=== PATIENT | male | born 1960 | race Caucasian/White ===

== ENCOUNTER 2020-02-16 11:08 | Emergency (ER) | payer BC ==
[~2020-02-16] VITALS: Ht 172.7 cm; Wt 68.2 kg
[2020-02-16 11:16] VITALS: TEMP 98.4
[2020-02-16] MEDS ORDERED: CEPHALEXIN500 M1 PO (13:01)
[2020-02-16 13:53] VITALS: BP 132/74; PULSE 78
== END 2020-02-16 13:52 | disposition home or self-care (01) ==
LOC: COL.ER 11:08
DX: S61.211A Laceration without foreign body of left index finger without damage to nail, initial encounter (principal); S61.213A Laceration without foreign body of left middle finger without damage to nail, initial encounter; W29.8XXA Contact with other powered hand tools and household machinery, initial encounter

== ENCOUNTER → 2020-02-26 | Outpatient (CLI) | payer BC ==
[~2020-02-26] MED LIST: CEPHALEXIN500 M1 PO
[2020-02-26 13:08] VITALS: BP 120/776; PULSE 57; TEMP 97.4
== END ==
LOC: COL.ER 13:01
DX: Z48.02 Encounter for removal of sutures (principal)

== ENCOUNTER 2021-11-15 10:03 | Emergency (ER) | payer BC ==
[~2021-11-15] VITALS: Ht 172.7 cm; Wt 68.2 kg
[2021-11-15 12:42] VITALS: BP 117/79; PULSE 70; TEMP 97.6
== END 2021-11-15 12:42 | disposition home or self-care (01) ==
LOC: COL.ER 10:03
DX: J32.9 Chronic sinusitis, unspecified (principal)

== ENCOUNTER 2022-04-15 07:30 | Day surgery (SDC) | payer BC ==
[~2022-04-15] VITALS: Ht 172.7 cm; Wt 65.2 kg
[2022-04-15] MEDS ORDERED: ADDERALL20 MG PO (08:05)
[2022-04-15 09:11] VITALS: BP 133/96; PULSE 66; TEMP 97.5
[2022-04-15 14:30] VITALS: BP 122/92; PULSE 64; TEMP 97.5
[2022-04-15 14:45] VITALS: BP 124/88; PULSE 56
[2022-04-15 15:00] VITALS: BP 135/83; PULSE 58
--- NOTE | 2022-04-15 15:05 | NUR ---
1430 RETURNS TO ROOM 6 PER CART. AWAKE, ALERT. AMBULATES TO RECLINER WITH STANDBY ASSIST. RESP UNLABORED. DENIES NAUSEA OR ABD PAIN. VITAL SIGNS OBTAINED. CALL LIGHT AT SIDE. 1440 TOLERATES PO JUICE AND MUFFIN WITHOUT NAUSEA. 1445 DISCHARGE INSTRUCTIONS REVIEWED. PATIENT VERBALIZES UNDERSTANDING. COPY PROVIDED IN DISCHARGE FOLDER 1456 DR. NGO HERE TO VISIT WITH PATIENT 1500 DRESSES SELF
== END 2022-04-15 15:50 | disposition home or self-care (01) ==
LOC: SDCO 07:30
DX: Z12.11 Encounter for screening for malignant neoplasm of colon (principal); K63.5 Polyp of colon; D12.3 Benign neoplasm of transverse colon; K64.0 First degree hemorrhoids
CPT/HCPCS: J2704